=== PATIENT | female | born 1995 | race African-American/Black ===

== ENCOUNTER 2020-07-22 17:29 | Emergency (ER) | payer BC ==
[~2020-07-22] VITALS: Ht 172.7 cm; Wt 165.0 kg
[~2020-07-22 17:29] MED LIST: CIPR2.5D18 OP; LEVA15HF4 IH; OMEP40CA13 PO; PRED20TA PO
[2020-07-22] MEDS ORDERED: dexamethasone sod phosphate 10mg/ml inj IV STA (17:41)
[2020-07-22] MEDS ORDERED: diphenhydrAMINE 50 mg/ml inj IV ONE (17:45)
[2020-07-22] MEDS ORDERED: normal saline 1000ML IV soln IVB ONE (17:45)
[2020-07-22] MEDS ORDERED: famotidine/PF 10 mg/ml inj IV ONE (17:45)
--- NOTE | 2020-07-22 17:45 | NUR ---
Luana VENCES PA AT BEDSIDE TO EVALUATE PT
[2020-07-22] MEDS ORDERED: epiNEPHrine 1 mg/ml inj SQ STA (17:46)
[2020-07-22] MEDS ORDERED: racepinephrine 11.25mg/0.5ml nebule IH ONE (17:55)
--- NOTE | 2020-07-22 18:17 | NUR ---
PT IS RESTING QUIETLY ON GURNEY, RESP EVEN AND UNLABORED, 1ST LITER NS INFUSING W/O, PT SAID SYMPTOMS CONTINUE TO RESOLVE, TALKING FULL SENTENCES, VOICE IS NO LONGER HOARSE,
[2020-07-22] MEDS ORDERED: EPIN0.3P3 IM (18:49)
--- NOTE | 2020-07-22 18:54 | NUR ---
[facility] [place] CALLED [phone]
[2020-07-22 19:16] VITALS: BP 115/66
== END 2020-07-22 19:18 | disposition home or self-care (01) ==
LOC: ER 17:29
DX: T78.01XA Anaphylactic reaction due to peanuts, initial encounter (principal); J45.909 Unspecified asthma, uncomplicated; F12.90 Cannabis use, unspecified, uncomplicated; Z79.2 Long term (current) use of antibiotics; Z79.899 Other long term (current) drug therapy; Y92.89 Other specified places as the place of occurrence of the external cause
CPT/HCPCS: 94640; 96361; 96372; 96374; 96375; 99284; J0171; J1100; J1200; J3490; J7030; 94760